=== PATIENT | female | born 1985 | race Caucasian/White ===

== ENCOUNTER → 2022-08-01 | Outpatient (REF) | payer OTHER, MEDICAID ==
[2022-08-01 18:16] LABS: CREATININE, URINE 179.2 MG/DL; MAU/CREAT RATIO 13.3 MCG/MG (0.0-30.0)
== END ==
LOC: M LAB REF 17:08
PROVIDERS: ATTEND Physician Assistant
DX: E11.65 Type 2 diabetes mellitus with hyperglycemia (principal)

== ENCOUNTER → 2022-08-05 | Outpatient (REF) | payer OTHER, MEDICAID | LOC: M LAB REF 17:39 | PROVIDERS: ATTEND Physician Assistant | DX: Z12.4 Encounter for screening for malignant neoplasm of cervix (principal) ==

== ENCOUNTER → 2022-09-04 | Outpatient (REF) | payer OTHER, MEDICAID | LOC: M LAB REF 16:21 | PROVIDERS: ATTEND Physician Assistant | DX: J04.0 Acute laryngitis (principal) ==

== ENCOUNTER 2022-12-10 00:34 | Emergency (ER) | payer MEDICAID, OTHER ==
[~2022-12-10] VITALS: Ht 170.2 cm; Wt 148.6 kg
[2022-12-10] MEDS ORDERED: LISI2.5T9 (00:50)
[2022-12-10] MEDS ORDERED: OMEP40CA5 (00:50)
[2022-12-10] MEDS ORDERED: METF500T13 (00:50)
[2022-12-10] MEDS ORDERED: DULA4.5P (00:50)
[2022-12-10] MEDS ORDERED: FLUT50SP17 (00:50)
[2022-12-10] MEDS ORDERED: ATOR1TAB21 (00:50)
[2022-12-10] MEDS ORDERED: CLIN1PAD2 (00:50)
[2022-12-10] MEDS ORDERED: SUMA25TA3 (00:50)
[2022-12-10] MEDS ORDERED: CETI-24 (00:50)
[2022-12-10] MEDS ORDERED: DEBL1TAB (00:56)
[2022-12-10] MEDS ORDERED: guaiFENesin ER 600 MG TAB PO STA (08:11)
[2022-12-10] MEDS ORDERED: BENZONATATE 100MG CAPSULE PO ONE (08:15)
[2022-12-10] MEDS ORDERED: ALBUTEROL SULFATE 2.5MG/0.5ML INH NEB SOLN NEB PRN (08:15)
[2022-12-10 08:45] VITALS: TEMP 98.6
[2022-12-10] MEDS ORDERED: VENTAER INH (10:23)
[2022-12-10] MEDS ORDERED: MUCI120T PO (10:23)
[2022-12-10] MEDS ORDERED: BENZ200C70 PO (10:23)
[2022-12-10 10:55] VITALS: BP 119/78; O2SAT 97
== END 2022-12-10 10:57 | disposition home or self-care (01) ==
LOC: M ED 00:34
DX: R05.9 Cough, unspecified (principal); R09.81 Nasal congestion; R09.89 Other specified symptoms and signs involving the circulatory and respiratory systems; E11.9 Type 2 diabetes mellitus without complications; Z79.84 Long term (current) use of oral hypoglycemic drugs; Z79.899 Other long term (current) drug therapy

== ENCOUNTER → 2023-01-17 | Outpatient (CLI) | payer OTHER ==
[~2023-01-17] MED LIST: ATOR1TAB21; BENZ200C70 PO; CETI-24; CLIN1PAD2; DEBL1TAB; DULA4.5P; FLUT50SP17; LISI2.5T9; METF500T13; MUCI120T PO; OMEP40CA5; SUMA25TA3; VENTAER INH
[2023-01-20 14:08] LABS: RUBELLA IgG FOR TORCH EVAL 5.82 index (Immune >0.99); RUBEOLA IgG ANTIBODY >300.0 AU/mL (Immune >16.4)
== END ==
LOC: M WUC 14:49
PROVIDERS: ATTEND Family Medicine Addiction Medicine
DX: Z71.9 Counseling, unspecified (principal)

== ENCOUNTER → 2023-01-23 | Outpatient (CLI) | payer OTHER | LOC: M WHC 12:58 | PROVIDERS: ATTEND Nurse Practitioner Family | DX: M79.661 Pain in right lower leg (principal) ==

== ENCOUNTER → 2023-06-05 | Outpatient (REF) | payer OTHER ==
[~2023-06-05] MED LIST changes: -FLUT50SP17; +FLUTISP
[2023-06-05 17:24] LABS: CREATININE, URINE 68.7 MG/DL
[2023-06-05 17:25] LABS: MALB URINE SIEMENS < 3.0 MG/L; MAU/CREAT RATIO 4.3 MCG/MG (0.0-30.0)
== END ==
LOC: M LAB REF 16:12
PROVIDERS: ATTEND Physician Assistant
DX: E11.9 Type 2 diabetes mellitus without complications (principal)

== ENCOUNTER 2023-07-29 10:59 | Outpatient (RCR) | payer OTHER | END 2023-08-10 | LOC: M PT 10:59 | PROVIDERS: ATTEND Physician Assistant | DX: M99.05 Segmental and somatic dysfunction of pelvic region (principal); N39.3 Stress incontinence (female) (male) ==

== ENCOUNTER 2023-09-02 11:45 | Outpatient (RCR) | payer OTHER | END 2023-09-09 | LOC: M PT 11:45 | PROVIDERS: ATTEND Physician Assistant | DX: N39.3 Stress incontinence (female) (male) (principal) ==

== ENCOUNTER 2023-09-16 15:00 | Outpatient (RCR) | payer OTHER | END 2023-10-10 | LOC: M PT 15:00 | PROVIDERS: ATTEND Physician Assistant | DX: N39.3 Stress incontinence (female) (male) (principal); M99.05 Segmental and somatic dysfunction of pelvic region ==

== ENCOUNTER → 2023-12-11 | Outpatient (CLI) | payer OTHER ==
[2023-12-11 11:55] LABS: HEMATOCRIT 42.1 % (36.0-47.0); HEMOGLOBIN 13.6 g/dl (12.0-15.5); MEAN CORPUSCULAR HEMOGLOBIN 26.3 pg (27.0-33.0); MEAN CORPUSCULAR HGB CONC 32.3 g/dl (32.0-36.5); MEAN CORPUSCULAR VOLUME 81.3 fl (80.0-96.0); PLATELET COUNT, AUTOMATED 296 10^3/uL (150-450); RED BLOOD COUNT 5.18 10^6/uL (4.00-5.40); WHITE BLOOD COUNT 9.4 10^3/uL (4.0-10.0)
[2023-12-11 12:25] LABS: ALBUMIN 3.5 G/DL (3.2-5.2); ALKALINE PHOSPHATASE 86 U/L (46-116); ALT/SGPT 75 U/L (7.0-40); AST/SGOT 39 U/L (<34); BILIRUBIN,TOTAL 0.8 MG/DL (0.3-1.2); BLOOD UREA NITROGEN 9 MG/DL (9-23); CALCIUM LEVEL 9.3 MG/DL (8.5-10.1); CARBON DIOXIDE LEVEL 21 MMOL/L (20-31); CHLORIDE LEVEL 107 MMOL/L (98-107); CHOLESTEROL LEVEL 150 MG/DL (<200); CREATININE FOR GFR 0.61 MG/DL (0.55-1.30); GLOMERULAR FILTRATION RATE > 60.0 (>60); GLUCOSE, FASTING 229 MG/DL (60-100); HDL CHOLESTEROL 26.3 MG/DL (>40); LDL CHOLESTEROL 99.9 MG/DL (<100); NON-HDL-C 123.7 MG/DL; POTASSIUM SERUM 4.3 MMOL/L (3.5-5.1); SODIUM LEVEL 136 MMOL/L (136-145); TOTAL PROTEIN 6.8 G/DL (5.7-8.2); TRIGLYCERIDES LEVEL 119 MG/DL (<150)
== END ==
LOC: M LAB 10:54
PROVIDERS: ATTEND Physician Assistant
DX: E11.9 Type 2 diabetes mellitus without complications (principal)

== ENCOUNTER → 2023-12-29 | Outpatient (REF) | payer OTHER, MEDICAID | LOC: M LAB REF 16:24 | PROVIDERS: ATTEND Physician Assistant | DX: R30.0 Dysuria (principal) ==

== ENCOUNTER → 2024-01-06 | Outpatient (REF) | payer OTHER, MEDICAID | LOC: M LAB REF 16:39 | PROVIDERS: ATTEND Nurse Practitioner Family | DX: F90.0 Attention-deficit hyperactivity disorder, predominantly inattentive type (principal) ==

== ENCOUNTER → 2024-04-26 | Outpatient (CLI) | payer OTHER ==
[2024-04-26 12:15] LABS: THYROID STIMULATING HORMONE 1.126 uIU/ML (0.55-4.78)
[2024-04-26 12:16] LABS: ESTRADIOL 37.1 PG/ML; FOLLICLE STIMULATING HORMONE 7.6 mIU/ML; LUTEINIZING HORMONE 4.1 mIU/ML
== END ==
LOC: M LAB 10:23
PROVIDERS: ATTEND Obstetrics & Gynecology
DX: N97.9 Female infertility, unspecified (principal)

== ENCOUNTER 2024-05-26 03:48 | Emergency (ER) | payer MEDICAID, OTHER ==
[~2024-05-26] VITALS: Ht 170.2 cm; Wt 150.0 kg
[2024-05-26 04:13] LABS: BASO % 0.3 % (0.0-1.0); EOS # 0.1 10^3/uL (0.0-0.5); EOS % 1.3 % (0.0-3.0); HEMATOCRIT 42.7 % (36.0-47.0); HEMOGLOBIN 13.8 g/dl (12.0-15.5); LYMPH # 3.8 10^3/uL (1.5-5.0); LYMPH % 39.6 % (24.0-44.0); MEAN CORPUSCULAR HEMOGLOBIN 25.7 pg (27.0-33.0); MEAN CORPUSCULAR HGB CONC 32.3 g/dl (32.0-36.5); MEAN CORPUSCULAR VOLUME 79.5 fl (80.0-96.0); MONO # 0.4 10^3/uL (0.0-0.8); NEUTROPHILS # 5.2 10^3/uL (1.5-8.5); NEUTROPHILS % 54.6 % (36.0-66.0); PLATELET COUNT, AUTOMATED 402 10^3/uL (150-450); RED BLOOD COUNT 5.37 10^6/uL (4.00-5.40); WHITE BLOOD COUNT 9.6 10^3/uL (4.0-10.0)
[2024-05-26 04:40] LABS: LIPASE 38 U/L (12-53)
[2024-05-26 04:46] LABS: ALBUMIN 3.9 G/DL (3.2-5.2); ALKALINE PHOSPHATASE 72 U/L (35-104); ALT/SGPT 61 U/L (7.0-40); AST/SGOT 30 U/L (<34); BILIRUBIN,DIRECT 0.2 MG/DL (<0.4); BILIRUBIN,TOTAL 0.6 MG/DL (0.3-1.2); BLOOD UREA NITROGEN 11 MG/DL (9-23); CALCIUM LEVEL 9.8 MG/DL (8.5-10.1); CARBON DIOXIDE LEVEL 23 MMOL/L (20-31); CHLORIDE LEVEL 107 MMOL/L (98-107); CREATININE FOR GFR 0.63 MG/DL (0.55-1.30); GLOMERULAR FILTRATION RATE > 60.0 (>60); GLUCOSE, FASTING 182 MG/DL (60-100); POTASSIUM SERUM 4.4 MMOL/L (3.5-5.1); SODIUM LEVEL 140 MMOL/L (136-145); TOTAL PROTEIN 7.7 G/DL (5.7-8.2)
[2024-05-26 04:56] LABS: HCG, SERUM QUALITATIVE NEGATIVE (NEGATIVE)
[2024-05-26 05:30] LABS: KETONE, URINE AUTO RFX NEGATIVE (NEGATIVE); MUCUS, URINE RFX SMALL (NEGATIVE); NITRITE, URINE AUTO RFX NEGATIVE (NEGATIVE); RBC, URINE AUTO RFX 8 /HPF (0-3); SQUAM EPITHELIAL CELL UR AURFX 23 /HPF (0-6)
[2024-05-26 05:41] LABS: LEUKOCYTE ESTERASE UR AUTO RFX 2+ (NEGATIVE); WBC, URINE AUTO RFX 34 /HPF (0-3)
[2024-05-26] MEDS ORDERED: NITR100C3 PO (08:03)
[2024-05-26 08:47] VITALS: BP 122/74; TEMP 97.7; O2SAT 98
== END 2024-05-26 08:48 | disposition home or self-care (01) ==
LOC: M ED 03:48
DX: N39.0 Urinary tract infection, site not specified (principal); E11.9 Type 2 diabetes mellitus without complications; F12.10 Cannabis abuse, uncomplicated; Z79.02 Long term (current) use of antithrombotics/antiplatelets; Z79.52 Long term (current) use of systemic steroids; Z79.4 Long term (current) use of insulin; Z79.899 Other long term (current) drug therapy; Z79.2 Long term (current) use of antibiotics

== ENCOUNTER → 2024-06-28 | Outpatient (REF) | payer OTHER, MEDICAID ==
[~2024-06-28] MED LIST changes: +NITR100C3 PO
[2024-06-28 17:13] LABS: CREATININE, URINE 248.9 MG/DL; MAU/CREAT RATIO 10.8 MCG/MG (0.0-30.0)
== END ==
LOC: M LAB REF 15:56
PROVIDERS: ATTEND Nurse Practitioner Family
DX: E11.9 Type 2 diabetes mellitus without complications (principal)

== ENCOUNTER 2024-07-27 23:12 | Emergency (ER) | payer MEDICAID, OTHER ==
[~2024-07-27] VITALS: Ht 170.2 cm; Wt 168.2 kg
[2024-07-28 03:37] VITALS: TEMP 98.7
[2024-07-28] MEDS ORDERED: IBUP-1022 PO (06:20)
[2024-07-28] MEDS: IBUPROFEN 600MG TAB PO ONE (06:50)
[2024-07-28 07:00] VITALS: BP 126/65; O2SAT 81
== END 2024-07-28 07:06 | disposition home or self-care (01) ==
LOC: M ED 23:12
DX: S80.01XA Contusion of right knee, initial encounter (principal); M25.461 Effusion, right knee; M17.11 Unilateral primary osteoarthritis, right knee; W01.198A Fall on same level from slipping, tripping and stumbling with subsequent striking against other object, initial encounter; Y92.009 Unspecified place in unspecified non-institutional (private) residence as the place of occurrence of the external cause; Y93.89 Activity, other specified; Y99.9 Unspecified external cause status; Z79.02 Long term (current) use of antithrombotics/antiplatelets; Z79.52 Long term (current) use of systemic steroids; Z79.4 Long term (current) use of insulin; Z79.899 Other long term (current) drug therapy

== ENCOUNTER → 2025-01-04 | Outpatient (REF) | payer OTHER ==
[~2025-01-04] MED LIST changes: +IBUP600T42 PO
== END ==
LOC: M LAB REF 17:35 → M LABWUC 17:35
PROVIDERS: ATTEND Student in an Organized Health Care Education/Training Program
DX: N92.6 Irregular menstruation, unspecified (principal)

== ENCOUNTER → 2025-05-10 | Outpatient (CLI) | payer OTHER | LOC: M WUC 13:02 | PROVIDERS: ATTEND Nurse Practitioner Family | DX: M54.2 Cervicalgia (principal) ==